=== PATIENT | male | born 1995 | race Caucasian/White ===

== ENCOUNTER 2021-09-13 09:51 | Outpatient (CLI) | payer OTHER | END 2021-09-13 20:11 | disposition home or self-care (01) | LOC: SCA 09:51 | PROVIDERS: ATTEND Physician Assistant Medical | DX: R93.1 Abnormal findings on diagnostic imaging of heart and coronary circulation (principal); R07.9 Chest pain, unspecified | CPT/HCPCS: 93306 ==